=== PATIENT | male | born 1990 | race African-American/Black ===

== ENCOUNTER 2021-11-19 03:27 | Emergency (ER) | payer SELFPAY ==
--- NOTE | 2021-11-19 04:30 | EDPHYS ---
Physician Documentation [facility] Name: Garrison Aguirre Jr Age: 31 yrs Sex: Male : 1990 Arrival Date: 11/19/2021 Time: 03:31 Bed 9 Private MD: ED Physician Nahum Mcmahon HPI: 11/19 04:23 This 31 yrs old Black Male presents to ER via Ambulatory with complaints of Shoulder pkl Injury. 04:23 The patient or guardian complains of pain, that is acute. left shoulder. Context: pkl resulted from lifting alfalfa hay. Onset: The symptoms/episode began/occurred this morning. Historical: - Allergies: 03:43 No Known Allergies; bb - Home Meds: 03:43 None [Active]; bb - PMHx: 03:43 shoulder dislocation; bb - PSHx: 03:44 left arm surgery; bb - Immunization history:: Adult Immunizations up to date, Client reports having NOT received the Covid vaccine. - Social history:: Smoking status: Patient reports the use of cigarette tobacco products, denies chronic smoking, but will smoke occasionally. ROS: 04:23 Eyes: Negative for injury, pain, redness, and discharge, ENT: Negative for injury, pkl pain, and discharge, Neck: Negative for injury, pain, and swelling, Cardiovascular: Negative for chest pain, palpitations, and edema, Respiratory: Negative for shortness of breath, cough, wheezing, and pleuritic chest pain, Abdomen/GI: Negative for abdominal pain, nausea, vomiting, diarrhea, and constipation, Back: Negative for injury and pain, : Negative for injury, bleeding, discharge, and swelling, Skin: Negative for injury, rash, and discoloration, Neuro: Negative for headache, weakness, numbness, tingling, and seizure. 04:23 MS/extremity: Positive for pain, of the left shoulder. Exam: 04:25 Head/Face: Normocephalic, atraumatic. Eyes: Pupils equal round and reactive to light, pkl extra-ocular motions intact. Lids and lashes normal. Conjunctiva and sclera are non-icteric and not injected. Cornea within normal limits. Periorbital areas with no swelling, redness, or edema. ENT: Nares patent. No nasal discharge, no septal abnormalities noted. Tympanic membranes are normal and external auditory canals are clear. Oropharynx with no redness, swelling, or masses, exudates, or evidence of obstruction, uvula midline. Mucous membranes moist. Neck: Trachea midline, no thyromegaly or masses palpated, and no cervical lymphadenopathy. Supple, full range of motion without nuchal rigidity, or vertebral point tenderness. No Meningismus. Chest/axilla: Normal chest wall appearance and motion. Nontender with no deformity. No lesions are appreciated. Cardiovascular: Regular rate and rhythm with a normal S1 and S2. No gallops, murmurs, or rubs. Normal PMI, no JVD. No pulse deficits. Respiratory: Lungs have equal breath sounds bilaterally, clear to auscultation and percussion. No rales, rhonchi or wheezes noted. No increased work of breathing, no retractions or nasal flaring. Abdomen/GI: Soft, non-tender, with normal bowel sounds. No distension or tympany. No guarding or rebound. No evidence of tenderness throughout. Back: No spinal tenderness. No costovertebral tenderness. Full range of motion. Skin: Warm, dry with normal turgor. Normal color with no rashes, no lesions, and no evidence of cellulitis. Neuro: Awake and alert, GCS 15, oriented to person, place, time, and situation. Cranial nerves II-XII grossly intact. Motor strength 5/5 in all extremities. Sensory grossly intact. Cerebellar exam normal. Normal gait. 04:25 Musculoskeletal/extremity: Extremities: grossly normal except: noted in the left shoulder: decreased ROM, pain. Vital Signs: 03:41 BP 134 / 88; Pulse 89; Resp 16 S; Temp 97.1(TE); Pulse Ox 98% on R/A; Weight 83.91 kg bb (R); Height 5 ft. 11 in. (180.34 cm) (R); Pain 10/10; 03:41 Body Mass Index 25.80 (83.91 kg, 180.34 cm) bb MDM: 04:15 Patient medically screened. pkl 04:25 Data reviewed: vital signs, nurses notes. pkl 04:25 ED course: Advised to follow up with Orthopedist in 2 to 3 days. Patient understood pkl instructions. 11/19 03:48 Order name: XRAY Shoulder LEFT 2 view 11/19 04:22 Order name: Arm-Sling; Complete Time: 04:25 pkl Administered Medications: 05:15 Drug: Ketorolac 60 mg Route: IM; Site: right gluteus; bb 05:36 Follow up: Response: No adverse reaction bb Disposition Summary: 11/19/21 04:29 Discharge Ordered Location: Home pkl Problem: new pkl Symptoms: are unchanged pkl Condition: Stable pkl Diagnosis - Left shoulder strain pkl Followup: pkl - With: Private Physician - When: 2 - 3 days - Reason: Re-evaluation by your physician Discharge Instructions: - Discharge Summary Sheet pkl Forms: - Medication Reconciliation Form pkl - Thank You Letter pkl - Antibiotic Education pkl - Prescription Opioid Use pkl Prescriptions: - Diclofenac Sodium 75 mg Oral Tablet Sustained Release - take 1 tablet by ORAL route 2 times per day; 30 tablet; Refills: 0, Product pkl Selection Permitted Signatures: Dispatcher [employer] Nahum Parr MD MD pkl Iris Bryant RN RN bb Corrections: (The following items were deleted from the chart) 03:45 03:43 PSHx: None; lloyd desai
--- NOTE | 2021-11-19 04:30 | ER ---
Nurse's Notes [facility] Name: Garrison Aguirre Jr Age: 31 yrs Sex: Male : 1990 Arrival Date: 11/19/2021 Time: 03:31 Bed 9 Private MD: Diagnosis: Left shoulder strain Presentation: 11/19 03:41 Chief complaint: Patient states: he dislocated his left shoulder earlier today when he bb was grabbing some alfalfa hay he was here earlier but the wait was too long now he is having difficulty moving it and the pain is 10/10. Coronavirus screen: At this time, the client does not indicate any symptoms associated with coronavirus-19. Ebola Screen: No symptoms or risks identified at this time. Initial Sepsis Screen: Does the patient meet any 2 criteria? No. Patient's initial sepsis screen is negative. Does the patient have a suspected source of infection? No. Patient's initial sepsis screen is negative. Risk Assessment: Do you want to hurt yourself or someone else? Patient reports no desire to harm self or others. Onset of symptoms was November 18, 2021. 03:41 Method Of Arrival: Ambulatory bb 03:41 Acuity: CAMERON 3 bb Triage Assessment: 03:44 General: Appears in no apparent distress. uncomfortable, Behavior is calm, cooperative. bb Pain: Complains of pain in left arm Pain currently is 10 out of 10 on a pain scale. Neuro: Level of Consciousness is awake, alert, obeys commands, Oriented to person, place, time, situation. Cardiovascular: Capillary refill < 3 seconds Patient's skin is warm and dry. Respiratory: Respiratory effort is unlabored. GI: Abdomen is non-distended. Derm: Skin is dry, Skin is normal, Skin temperature is warm. Musculoskeletal: pt reports pain and possible dislocation to left shoulder. Injury Description: injury to left shoulder. Historical: - Allergies: 03:43 No Known Allergies; bb - Home Meds: 03:43 None [Active]; bb - PMHx: 03:43 shoulder dislocation; bb - PSHx: 03:44 left arm surgery; bb - Immunization history:: Adult Immunizations up to date, Client reports having NOT received the Covid vaccine. - Social history:: Smoking status: Patient reports the use of cigarette tobacco products, denies chronic smoking, but will smoke occasionally. Screenin:47 Abuse screen: Denies threats or abuse. Nutritional screening: No deficits noted. bb Tuberculosis screening: No symptoms or risk factors identified. Fall Risk None identified. Assessment: 03:47 Reassessment: No changes from previously documented assessment. Patient is alert, bb oriented x 3, equal unlabored respirations, skin warm/dry/pink. see triage assessment. 05:36 Reassessment: Patient is alert, oriented x 3, equal unlabored respirations, skin bb warm/dry/pink. pt verbalized understanding of and agrees to plan of care discharge instructions given pt ambulated with steady gait to exit. Vital Signs: 03:41 BP 134 / 88; Pulse 89; Resp 16 S; Temp 97.1(TE); Pulse Ox 98% on R/A; Weight 83.91 kg bb (R); Height 5 ft. 11 in. (180.34 cm) (R); Pain 10/10; 03:41 Body Mass Index 25.80 (83.91 kg, 180.34 cm) bb ED Course: 03:31 Patient arrived in ED. wm 03:43 Triage completed. bb 03:44 Arm band placed on Patient placed in an exam room, on a stretcher. bb 03:47 Iris Bryant, RN is Primary Nurse. bb 03:47 Patient has correct armband on for positive identification. Call light in reach. bb 04:07 XRAY Shoulder LEFT 2 view In Process Unspecified. EDMS 04:14 Nahum Mcmahon MD is Attending Physician. pkl 05:37 No provider procedures requiring assistance completed. Patient did not have IV access bb during this emergency room visit. Administered Medications: 05:15 Drug: Ketorolac 60 mg Route: IM; Site: right gluteus; bb 05:36 Follow up: Response: No adverse reaction bb Outcome: 04:29 Discharge ordered by . pkl 05:37 Discharged to home ambulatory. bb 05:37 Condition: stable 05:37 Discharge instructions given to patient, Instructed on discharge instructions, follow up and referral plans. medication usage, Demonstrated understanding of instructions, follow-up care, medications, Prescriptions given X 1. 05:37 Patient left the ED. bb Signatures: Dispatcher [facility] EDMD Nahum Mcmahon MD MD pkIris Linares, RN RN bb Latonia Chew Corrections: (The following items were deleted from the chart) 03:45 03:43 PSHx: None; bb bb
[2021-11-19] MEDS ORDERED: KETOROLAC 30 MG/ML INJ ONE (04:56)
[2021-11-19 05:45] VITALS: BP 134/88; TEMP 97.1; O2SAT 98
--- NOTE | 2021-11-19 08:41 | RAD REPORT ---
EXAM DESCRIPTION: RAD - Shoulder Left 2 View - 11/19/2021 4:07 am CLINICAL HISTORY: PAIN COMPARISON: No comparisons FINDINGS: Mild calcific tendinitis is suspected. No acute fracture or dislocation seen.
== END 2021-11-19 05:37 | disposition home or self-care (01) ==
LOC: ER 03:27
DX: S46.912A Strain of unspecified muscle, fascia and tendon at shoulder and upper arm level, left arm, initial encounter (principal); X50.0XXA Overexertion from strenuous movement or load, initial encounter; Z72.0 Tobacco use
CPT/HCPCS: 96372; 99283